=== PATIENT | female | born 1990 | race Caucasian/White ===

== ENCOUNTER 2016-06-04 11:22 | Emergency (ER) | payer SELFPAY ==
[2016-06-04 11:59] VITALS: BP 145/84
--- NOTE | 2016-07-07 17:17 | UC ---
Grecia Alford Anna, scribed for Jasmine Regan MD on 06/04/16 at 1224 . General HPI - HPI Summary HPI Summary: Patient is a 26 y/o female coming to [facility] [place] with acute on chronic vomiting and diarrhea that began yesterday. Two nights ago, she had a dinner of chicken, refried beans, and a tortilla, after which she experienced abd pain. When she woke up yesterday at 0400 she experienced diarrhea and vomiting and had a fever of 102. The fever has since resolved, and the diarrhea has somewhat resolved. She has a PHOENIX at bedtime almost every night at baseline. Her most recent headache was two nights ago, not the worst of her life. She has a vaginal discharge at baseline, which she noticed has been increasing in quantity. She has had two yeast infections previously, but not recently. She has been dizzy lately, especially yesterday morning. She has some dizziness at work on occasion, but she attributes this to dehydration and frequent activity at work. She reports urination urgency at baseline. She has not eaten anything today. She also has a slight cough, which she attributed to smoking. Her cough is productive and brings up phlegm regularly. She reports occasional wheezing and is reducing the amount that she smokes. Denies heart problems or recent travel. The symptoms are not alleviated by the use of probiotics and natural supplements. She reports having intermittent vomiting for a few months. Six months ago she had similar symptoms, including chills and cold sweats, but it was resolved after one night of sleep. - History of Current Complaint Chief Complaint: UCAbdominalPain Stated Complaint: CONGEST,STOMACH COMP, RETN TO [facility] NOTE NEEDED Hx Obtained From: Patient Onset Severity: Moderate Current Severity: Moderate - Allergy/Home Medications Allergies/Adverse Reactions: Allergies Allergy/AdvReac Type Severity Reaction Status Date / Time Amoxicillin Allergy Mild Rash Verified 07/24/15 16:58 PMH/Surg Hx/FS Hx/Imm Hx Endocrine History Of: Denies: Diabetes, Thyroid Disease Cardiovascular History Of: Denies: Cardiac Disorders, Hypertension Respiratory History Of: Denies: COPD, Asthma GI/ History Of: Denies: Ulcer - Surgical History Surgical History: None Surgery Procedure, Year, and Place: none - Family History Known Family History: Positive: Other - Hx GERD in mother - Social History Occupation: Employed Full-time Alcohol Use: Rare Substance Use Type: None Smoking Status (MU): Light Every Day Tobacco Smoker Type: Cigarettes Amount Used/How Often: 3-4 per night Have You Smoked in the Last Year: Yes Cessation Counseling: Counseled 3+Min - 10 Min - Immunization History Most Recent Influenza Vaccination: counseled Most Recent Tetanus Shot: 08/19/14 Most Recent Pneumonia Vaccination: none Review of Systems Constitutional: Negative Skin: Negative Eyes: Negative ENT: Negative Respiratory: Cough - See HPI Cardiovascular: Negative Gastrointestinal: Abdominal Pain, Vomiting, Diarrhea Genitourinary: Urgency - baseline, Other - Diarrhea, acute. Discharge, baseline. See HPI. Motor: Negative Neurovascular: Negative Musculoskeletal: Negative Neurological: Headache - baseline, Other - dizziness Psychological: Negative All Other Systems Reviewed And Are Negative: Yes Physical Exam Triage Information Reviewed: Yes Appearance: Well-Nourished Vital Signs: Initial Vital Signs Temp 98.8 F 06/04/16 11:49 Pulse 113 06/04/16 11:49 Resp 18 06/04/16 11:49 BP 145/84 06/04/16 11:49 Pulse Ox 94 06/04/16 11:49 Vital Signs Reviewed: Yes Eye Exam: Normal ENT: Positive: Other: - cerumen impaction au Neck exam: Normal - No adenopathy appreciated Respiratory Exam: Normal Respiratory: Positive: Chest non-tender, No respiratory distress, No accessory muscle use, Wheezing Cardiovascular Exam: Normal Cardiovascular: Positive: RRR, No Murmur, Pulses Normal, Brisk Capillary Refill Abdomen Description: Positive: No Organomegaly, Soft, Other: - abd diffuse, mostly midepig tenderness Bowel Sounds: Positive: Hyperactive Musculoskeletal Exam: Normal Musculoskeletal: Positive: Strength Intact Neurological Exam: Normal - Nonfocal, grossly intact Psychological Exam: Normal - Conversing easily and appropriately Skin Exam: Normal - No visible or reported rashes Course/Dx - Course Course Of Treatment: No new problems in CCC. S/Sx c/w acute gastroenteritis. EAC's flushed by RN. Post exam no problems. Reviewed d/c instructions and need for f/u with pt. Refill for inhaler also written. Questions answered to the best of my ability. - Differential Dx - Multi-Symptom Provider Diagnoses: acute gastrenteritits / diarrhea. Cerumen impaction Discharge - Discharge Plan Condition: Stable Disposition: HOME Prescriptions: Albuterol HFA INHALER* [Ventolin HFA Inhaler*] 1 - 2 puff INH Q4H PRN #1 mdi PRN Reason: Wheezing Ranitidine HCl [Zantac 150 Maximum Streng] 150 mg PO BID PRN #30 tab PRN Reason: Heartburn Patient Education Materials: How to Stop Smoking (ED), Cerumen Impaction (ED), Acute Diarrhea (ED), Abdominal Pain (ED) Forms: *Work Release Referrals: [facility] [place] [facility]ERR[facility] [Outside] Additional Instructions: Please follow up with a primary care provider as soon as you are able. Please seek medical attention for worsening problems in the meantime. Urine culture in the lab. You will be notified if there is a problem requiring treatment. Should you take an antibiotic, please avoid taking it within two hours of the antacid. Stool sample the next time you have a diarrhea bowel movement. The documentation as recorded by the Grecia wolf Anna accurately reflects the service I personally performed and the decisions made by me, Jasmine Regan MD.
== END 2016-06-04 13:41 | disposition home or self-care (01) ==
LOC: UCEAST 11:22
DX: K52.9 Noninfective gastroenteritis and colitis, unspecified (principal); H61.23 Impacted cerumen, bilateral; N89.8 Other specified noninflammatory disorders of vagina; R42 Dizziness and giddiness; R39.15 Urgency of urination; Z32.02 Encounter for pregnancy test, result negative; Z88.1 Allergy status to other antibiotic agents; F17.210 Nicotine dependence, cigarettes, uncomplicated; Z71.6 Tobacco abuse counseling
CPT/HCPCS: 69210; 81002; 81025; 87086; 99212; 99213; G0463

== ENCOUNTER 2016-06-11 08:18 | Emergency (ER) | payer SELFPAY ==
[2016-06-11] MEDS ORDERED: NS 0.9% 1000 ML* 2,000 ML IV ONE (09:07)
[2016-06-11 10:02] LABS: Hematocrit 40 % (35-47); Hemoglobin 13.5 g/dl (12.0-16.0); Mean Corpuscular HGB Conc 34 g/dl (31-36); Mean Corpuscular Hemoglobin 28 pg (27-31); Mean Corpuscular Volume 84 fL (80-97); Mean Platelet Volume 9 um3 (7.4-10.4); Red Blood Count 4.78 10^6/ul (4.0-5.4); Red Cell Distribution Width 13 % (10.5-15); White Blood Count 10.2 10^3/ul (3.5-10.8)
[2016-06-11 10:17] LABS: ALT 29 U/L (7-52); AST 17 U/L (13-39); Albumin 3.9 g/dL (3.2-5.2); Alkaline Phosphatase 63 U/L (34-104); Anion Gap 6 mmol/L (2-11); BUN/Creatinine Ratio 12.5 (8-20); Blood Urea Nitrogen 9 mg/dL (6-24); C Reactive Protein 15.24 mg/L (< 5.00); CO2 Carbon Dioxide 26 mmol/L (22-32); Calcium 9.4 mg/dL (8.6-10.3); Chloride 105 mmol/L (101-111); EGFR Non-African American 97.2 (>60); Globulin 3.1 g/dL (2-4); Glucose 96 mg/dL (70-100); Lipase < 10 U/L (11.0-82.0); Potassium 4.1 mmol/L (3.5-5.0); Sodium 137 mmol/L (133-145)
[2016-06-11 11:17] LABS: Urine Bilirubin Negative (Negative); Urine Glucose Negative (Negative); Urine Nitrite Negative (Negative)
[2016-06-11 11:17] LABS: TSH (Thyroid Stimulating Horm) 1.26 mcIU/mL (0.34-5.60)
[2016-06-11] MEDS ORDERED: Iohexol 300* (CONTRAST) 10 ML SDV IV ONE (11:19)
--- NOTE | 2016-06-11 12:23 | RAD ---
INDICATION: LEFT abdominal pain, diarrhea, vomiting. GI issues for 6 months. Family history of Crohn's disease. COMPARISON: None. TECHNIQUE: Multidetector CT images were obtained from the lung bases to the ischial tuberosities with 143 mL Omnipaque 300 IV and oral contrast. Multiplanar reformation. REPORT: Unremarkable visualized inferior thorax. Decreased density of the liver consistent with fatty infiltration. No focal hepatic lesions or biliary dilatation. No CT abnormality of the gallbladder, pancreas, spleen. No CT abnormality of the upper GI, small bowel, appendix visualized extending lateral to the cecum, or colon. Enteric contrast extends to the rectum. Negative for perienteric inflammatory change. Negative for ascites, free air, or significant hernias. Normal adrenal glands. Unremarkable kidneys with symmetric nephrograms and pyelograms. Unremarkable ureters and urinary bladder as well as the uterus and RIGHT adnexal region. 1.3 cm water density cyst of the LEFT ovary most consistent with a follicular cyst. This is low suspicion based on small size. Negative for lymphadenopathy. Unremarkable dominant retroperitoneal vasculature. Negative for suspicious osseous lesions. IMPRESSION: 1. Fatty infiltration of the liver. 2. No pathologic process of the bowel evident.
--- NOTE | 2016-06-11 13:53 | ED ---
Kirit Alford Alok, scribed for Sammy Vaughn MD on 06/11/16 at 1010 . Abdominal Pain/Female - HPI Summary HPI Summary: 26 y/o female presents to the ED with c/o abd pain and N/V for the last 6 months. Pt states that what began as just vomiting once a day in the morning has worsened with the addition of frequent and intense diarrhea about 1 month ago. Earlier today Pt notes vomiting twice this morning, the second time bright yellow emesis prompting her visit to the ED today. Pt's abd pain is concentrated on the left side and radiates towards her back. These digestion issues and abd pain worsen with food/fluid ingestion and register at a 6 out of 10 currently, though were at an 8 out of 10 this morning. Pt also notes having a subjective fever of 102 F taken at home 1 week ago after eating a regular meal. Pt denies any abd related PSHx. Pt also notes that her menstrual periods have been somewhat irregular recently. Pt denies any vaginal discharge, burning or dysuria. - History of Current Complaint Chief Complaint: EDAbdPain Stated Complaint: VOMITING Time Seen by Provider: 06/11/16 08:52 Hx Obtained From: Patient Hx Last Menstrual Period: May 21 ?: No Onset/Duration: Gradual Onset, Lasting Weeks, Still Present, Worse Since - 1 month ago Timing: Weeks Severity Initially: Moderate Severity Currently: Moderate Pain Intensity: 6 Pain Scale Used: 0-10 Numeric Location: Discrete At: LUQ, Discrete At: LLQ Radiates: Yes Radiates to: Back Character: Cramping Aggravating Factor(s): Food Alleviating Factor(s): Nothing Associated Signs and Symptoms: Positive: Fever, Decreased Appetite, Nausea, Vomiting, Diarrhea. Negative: Urinary Symptoms, Vaginal Discharge Allergies/Adverse Reactions: Allergies Allergy/AdvReac Type Severity Reaction Status Date / Time Amoxicillin Allergy Mild Rash Verified 07/24/15 16:58 PMH/Surg Hx/FS Hx/Imm Hx Endocrine/Hematology History: Denies: Hx Diabetes, Hx Thyroid Disease Cardiovascular History: Denies: Hx Hypertension Respiratory History: Denies: Hx Asthma, Hx Chronic Obstructive Pulmonary Disease (COPD) GI History: Denies: Hx Ulcer - Cancer History Cancer Type, Location and Year: none - Surgical History Surgery Procedure, Year, and Place: none Infectious Disease History: No Infectious Disease History: Denies: Hx Clostridium Difficile, Hx Hepatitis, Hx Human Immunodeficiency Virus (HIV), Hx of Known/Suspected MRSA, Hx Shingles, Hx Tuberculosis, Hx Known/ Suspected VRE, Hx Known/Suspected VRSA, History Other Infectious Disease, Traveled Outside the [place] in Last 30 Days - Family History Family History: Yes Cron's (Grandparents). Yes IBS (Father's side) - Social History Occupation: Employed Full-time Lives: With Family - Domestic partner (male) Alcohol Use: Rare Substance Use Type: Reports: None Smoking Status (MU): Light Every Day Tobacco Smoker Type: Cigarettes Amount Used/How Often: 3-4 per night Have You Smoked in the Last Year: Yes Review of Systems Positive: Fever. Negative: Chills Positive: Abdominal Pain - Left side, Vomiting, Diarrhea, Nausea Negative: burning, dysuria, discharge All Other Systems Reviewed And Are Negative: Yes Physical Exam - Summary Physical Exam Summary: Appearance: Well-appearing, no pain distress Skin: Warm, skin color reflect adequate color and perfusion, dry Head/Face: Normal head/face Eyes: EOMI, PERRL ENT: Normal ENT inspection Neck: Supple, nontender Resp: CTA, breath sounds present Cardio: RRR Abd: Left sided abdominal tenderness Bowel: Present Musculo: Normal, Strength, ROM intact Neuro: Normal, sensory/motor intact AxO x3 Psych: Affect/ mood appropriate Triage Information Reviewed: Yes Vital Signs On Initial Exam: Initial Vitals Temp Pulse Resp BP Pulse Ox 97.5 F 61 20 109/77 97 06/11/16 08:20 06/11/16 08:20 06/11/16 08:20 06/11/16 08:20 06/11/16 08:20 Vital Signs Reviewed: Yes Diagnostics - Vital Signs Vital Signs Temp Pulse Resp BP Pulse Ox 06/11/16 08:20 97.5 F 61 20 109/77 97 - Laboratory Lab Results: Lab Results 06/11/16 06/11/16 06/11/16 Range/Units 09:51 09:51 09:51 WBC 10.2 (3.5-10.8) 10^3/ul RBC 4.78 (4.0-5.4) 10^6/ul Hgb 13.5 (12.0-16.0) g/dl Hct 40 (35-47) % MCV 84 (80-97) fL MCH 28 (27-31) pg MCHC 34 (31-36) g/dl RDW 13 (10.5-15) % Plt Count 273 (150-450) 10^3/ul MPV 9 (7.4-10.4) um3 Neut % (Auto) 68.4 (38-83) % Lymph % (Auto) 25.1 (25-47) % [place] % (Auto) 5.0 (1-9) % Eos % (Auto) 0.8 (0-6) % Baso % (Auto) 0.7 (0-2) % Absolute Neuts (auto) 7.0 (1.5-7.7) 10^3/ul Absolute Lymphs (auto) 2.6 (1.0-4.8) 10^3/ul Absolute Monos (auto) 0.5 (0-0.8) 10^3/ul Absolute Eos (auto) 0.1 (0-0.6) 10^3/ul Absolute Basos (auto) 0.1 (0-0.2) 10^3/ul Absolute Nucleated RBC 0 10^3/ul Nucleated RBC % 0 INR (Anticoag Therapy) (0.89-1.11) APTT (26.0-36.3) seconds Sodium 137 (133-145) mmol/L Potassium 4.1 (3.5-5.0) mmol/L Chloride 105 (101-111) mmol/L Carbon Dioxide 26 (22-32) mmol/L Anion Gap 6 (2-11) mmol/L BUN 9 (6-24) mg/dL Creatinine 0.72 (0.51-0.95) mg/dL Est GFR ( Amer) 125.0 (>60) Est GFR (Non-Af Amer) 97.2 (>60) BUN/Creatinine Ratio 12.5 (8-20) Glucose 96 (70-100) mg/dL Lactic Acid 1.1 (0.5-2.0) mmol/L Calcium 9.4 (8.6-10.3) mg/dL Total Bilirubin 0.40 (0.2-1.0) mg/dL AST 17 (13-39) U/L ALT 29 (7-52) U/L Alkaline Phosphatase 63 (34-104) U/L C-Reactive Protein 15.24 H (< 5.00) mg/L Total Protein 7.0 (6.4-8.9) g/dL Albumin 3.9 (3.2-5.2) g/dL Globulin 3.1 (2-4) g/dL Albumin/Globulin Ratio 1.3 (1-3) Lipase < 10 L (11.0-82.0) U/L TSH 1.26 (0.34-5.60) mcIU/mL Beta HCG, Quant < 0.60 mIU/mL Urine Color Urine Appearance Urine pH (5-9) Ur Specific [place] (1.010-1.030) Urine Protein (Negative) Urine Ketones (Negative) Urine Blood (Negative) Urine Nitrate (Negative) Urine Bilirubin (Negative) Urine Urobilinogen (Negative) Ur Leukocyte Esterase (Negative) Urine Glucose (Negative) Urine Ascorbic Acid (Negative) 06/11/16 06/11/16 Range/Units 10:50 10:55 WBC (3.5-10.8) 10^3/ul RBC (4.0-5.4) 10^6/ul Hgb (12.0-16.0) g/dl Hct (35-47) % MCV (80-97) fL MCH (27-31) pg MCHC (31-36) g/dl RDW (10.5-15) % Plt Count (150-450) 10^3/ul MPV (7.4-10.4) um3 Neut % (Auto) (38-83) % Lymph % (Auto) (25-47) % Radford % (Auto) (1-9) % Eos % (Auto) (0-6) % Baso % (Auto) (0-2) % Absolute Neuts (auto) (1.5-7.7) 10^3/ul Absolute Lymphs (auto) (1.0-4.8) 10^3/ul Absolute Monos (auto) (0-0.8) 10^3/ul Absolute Eos (auto) (0-0.6) 10^3/ul Absolute Basos (auto) (0-0.2) 10^3/ul Absolute Nucleated RBC 10^3/ul Nucleated RBC % INR (Anticoag Therapy) 1.02 (0.89-1.11) APTT 31.7 (26.0-36.3) seconds Sodium (133-145) mmol/L Potassium (3.5-5.0) mmol/L Chloride (101-111) mmol/L Carbon Dioxide (22-32) mmol/L Anion Gap (2-11) mmol/L BUN (6-24) mg/dL Creatinine (0.51-0.95) mg/dL Est GFR ( Amer) (>60) Est GFR (Non-Af Amer) (>60) BUN/Creatinine Ratio (8-20) Glucose (70-100) mg/dL Lactic Acid (0.5-2.0) mmol/L Calcium (8.6-10.3) mg/dL Total Bilirubin (0.2-1.0) mg/dL AST (13-39) U/L ALT (7-52) U/L Alkaline Phosphatase (34-104) U/L C-Reactive Protein (< 5.00) mg/L Total Protein (6.4-8.9) g/dL Albumin (3.2-5.2) g/dL Globulin (2-4) g/dL Albumin/Globulin Ratio (1-3) Lipase (11.0-82.0) U/L TSH (0.34-5.60) mcIU/mL Beta HCG, Quant mIU/mL Urine Color Yellow Urine Appearance Cloudy Urine pH 6.0 (5-9) Ur Specific [place] 1.025 (1.010-1.030) Urine Protein Negative (Negative) Urine Ketones Negative (Negative) Urine Blood Negative (Negative) Urine Nitrate Negative (Negative) Urine Bilirubin Negative (Negative) Urine Urobilinogen Negative (Negative) Ur Leukocyte Esterase Negative (Negative) Urine Glucose Negative (Negative) Urine Ascorbic Acid * H (Negative) Result Diagrams: 06/11/16 09:51 06/11/16 09:51 Lab Statement: Any lab studies that have been ordered have been reviewed, and results considered in the medical decision making process. - CT Abd/Pel CT CT Interpretation: Positive (See Comments) - IMPRESSION: 1. Fatty infiltration of the liver. 2. No pathologic process of the bowel evident. CT Interpretation Completed By: Radiologist Re-Evaluation - Re-Evaluation First Eval Re-Evaluation Time: 13:25 Second Eval Re-Evaluation Time: 13:45 Abdominal Pain Fem Course/Dx - Course Course Of Treatment: WELL IN ED. DISCUSSED RESULTS WITH PATIENT. F/U WITH PMD; RETURN IF WORSE. DISCHARGE HOME STABLE. - Diagnoses Provider Diagnoses: Abdominal pain, Vomiting and diarrhea Discharge - Discharge Plan Condition: Stable Disposition: HOME Prescriptions: Prochlorperazine TAB* [Compazine Tab*] 10 mg PO Q6H PRN #20 tab PRN Reason: Nausea Patient Education Materials: Abdominal Pain (ED), Acute Nausea and Vomiting (ED ) Forms: *Work Release Referrals: No Primary Care Phys,NOPCP [Primary Care Provider] - [facility] [place]Outside] Additional Instructions: FOLLOW UP WITH YOUR DOCTOR. USE A BULKING AGENT SUCH METAMUCIL OR CITRUCEL DIRECTED. RETURN TO THE EMERGENCY DEPARTMENT FOR ANY WORSENING OF YOUR CONDITION; PAIN, FEVER, YOU FEEL ILL, BLOOD IN YOUR STOOL OR QUESTIONS OR CONCERNS. The documentation as recorded by the Kirit wolf Alok accurately reflects the service I personally performed and the decisions made by me, Sammy Vaughn MD.
[2016-06-11 14:10] VITALS: BP 119/54
== END 2016-06-11 14:11 | disposition home or self-care (01) ==
LOC: ED 08:18
DX: R10.84 Generalized abdominal pain (principal); R11.2 Nausea with vomiting, unspecified; R19.7 Diarrhea, unspecified; F17.210 Nicotine dependence, cigarettes, uncomplicated
CPT/HCPCS: 36415; 74177; 80053; 81003; 82272; 83605; 83630; 83690; 84443; 84702; 85025; 85610; 85730; 86140; 87045; 87046; 87077; 87328; 87329; 87493; 87899; 99283; Q9967

== ENCOUNTER 2018-09-01 09:25 | Emergency (ER) | payer OTHER ==
[2018-09-01 10:17] VITALS: BP 124/86
--- NOTE | 2018-09-01 10:57 | UC ---
Throat Pain/Nasal Carl HPI - HPI Summary HPI Summary: 28 y/o female presents to the urgent care c/o sore throat, sinus pressure w/ a lot of green nasal discharge , body aches, b/L neck pain w/ swollen glands since Friday08/29/2018. Pt reports after being in a libertarian, she developed fatigue, body aches and sore throat and severe nasal congestion. About 2 nights ago, she felt the need to do a BM and while in the bathroom, she experience chills and dizziness while doing the BM. Her sinus pain and congestion has worsen PT states had an instance of shaking, near fainting, need to defecate, 2 nights ago. Pt states extremely tired, neck stiffness, congestion that started yesterday. Pt states now feels nauseous, swollen neck glands. - History of Current Complaint Chief Complaint: UCGeneralIllness Stated Complaint: SINUS ISSUE SORE THROAT FEVER Time Seen by Provider: 09/01/18 10:54 Hx Obtained From: Patient Hx Last Menstrual Period: 08/05/18 Onset/Duration: Gradual Onset, Lasting Days - 4 days, Still Present, Worse Since - yesterday Severity: Severe Pain Intensity: 9 - sore throat Pain Scale Used: 0-10 Numeric Cough: None Associated Signs & Symptoms: Positive: Dysphagia, Sinus Discomfort - sinus pain , Nasal Discharge - green. Negative: Wheezing, Fever, Vomiting, Rash - Epiglottits Risk Factors Epiglottis Risk Factors: Negative - Allergies/Home Medications Allergies/Adverse Reactions: Allergies Allergy/AdvReac Type Severity Reaction Status Date / Time amoxicillin Allergy Rash Verified 09/01/18 10:09 PMH/Surg Hx/FS Hx/Imm Hx Previously Healthy: Yes - Pt denies PMHX - Surgical History Surgical History: None Surgery Procedure, Year, and Place: none - Family History Known Family History: Positive: Diabetes, Respiratory Disease - COPD, Other - NONCINTRIBUTORY Family History: Yes Cron's (Grandparents). Yes IBS (Father's side) - Social History Occupation: Employed Full-time Lives: With Family Alcohol Use: None Substance Use Type: None Smoking Status (MU): Former Smoker Type: Cigarettes Amount Used/How Often: 3-4 per night Have You Smoked in the Last Year: Yes When Did the Patient Quit Smoking/Using Tobacco: early - Immunization History Most Recent Influenza Vaccination: counseled Most Recent Tetanus Shot: 5/15/15 Most Recent Pneumonia Vaccination: none Review of Systems All Other Systems Reviewed And Are Negative: Yes Constitutional: Positive: Fatigue, Other - bodya ches Skin: Positive: Negative Eyes: Positive: Negative ENT: Positive: Sore Throat, Ear Ache - B/L ear pressure, Nasal Discharge - green , Sinus Congestion, Sinus Pain/Tenderness, Other - a lot of green PND Respiratory: Positive: Negative Cardiovascular: Positive: Negative Gastrointestinal: Positive: Negative Genitourinary: Positive: Negative Motor: Positive: Negative Neurovascular: Positive: Negative Musculoskeletal: Positive: Other: - B/L neck tenderness Neurological: Positive: Negative Psychological: Positive: Negative Is Patient Immunocompromised?: No Physical Exam - Summary Physical Exam Summary: GENERAL: Patient is a well developed and nourished obese female who is sitting comfortable in the examining table. Patient is not in any acute respiratory distress. HEAD AND FACE: No signs of trauma. No ecchymosis, hematomas or skull depressions. positive fontal and maxillary sinus tenderness on percussion EYES: PERRLA, EOMI x 2, No injected conjunctiva, no nystagmus. No photophobia. EARS: Hearing grossly intact. b/l ear canal impacted w/ cerumen unable to visualize TM's MOUTH: Positive pharynx with erythema, exudates, mild palatal petechiae. B/L tonsillar enlargement with mild exudate. Uvula in midline. severe green PND NECK: Supple, trachea is midline, Positive anterior cervical lymphadenopathy, no JVD, no carotid bruit, no c-spine tenderness, neck with full ROM. No meningeal signs, no Kernig's or brudzinskis signs. CHEST: Symmetric, no tenderness at palpation LUNGS: Clear to auscultation bilaterally. No wheezing or crackles. CVS: Regular rate and rhythm, S1 and S2 present, no murmurs or gallops appreciated. ABDOMEN: Soft, non-tender. No signs of distention. No rebound no guarding, and no masses palpated. Bowel sounds are normal. EXTREMITIES: FROM in all major joints, no edema, no cyanosis or clubbing. NEURO: Alert and oriented x 3. No acute neurological deficits. Speech is normal and follows commands. SKIN: Dry and warm Triage Information Reviewed: Yes Vital Signs: Initial Vital Signs Temp 98.3 F 09/01/18 10:10 Pulse 86 09/01/18 10:10 Resp 18 09/01/18 10:10 BP 124/86 09/01/18 10:10 Pulse Ox 98 09/01/18 10:10 Throat Pain/Nasal Course/Dx - Differential Dx/Diagnosis Differential Diagnosis/HQI/PQRI: Influenza, Laryngitis, Mononucleosis, Pharyngitis, Sinusitis, Tonsillitis, URI Provider Diagnosis: Acute bacterial sinusitis, Pharyngitis, Impacted cerumen of both ears Discharge - Sign-Out/Discharge Documenting (check all that apply): Patient Departure - D/c home All imaging exams completed and their final reports reviewed: No Studies - Discharge Plan Condition: Stable Disposition: HOME Prescriptions: Carbamide Peroxide 6.5% OTIC* [DEBROX 6.5% Otic*] 5 drop BOTH EARS BID #1 bottle DOXYcycline CAP(*) [DOXYcycline 100MG CAP(*)] 100 mg PO BID #20 cap Fluticasone NASAL SPRAY 50MCG* [Flonase NASAL SPRAY 50MCG*] 2 spray BOTH NARES DAILY #1 btl Ibuprofen TAB* [Motrin TAB* 800 MG] 800 mg PO Q6H PRN #30 tab PRN Reason: Sore Throat Patient Education Materials: Pharyngitis (ED), Sinusitis (ED) Forms: *Work Release Referrals: [facility] [place]Outside] - 3 Days Additional Instructions: 1- Please take the full course of the antibiotic to avoid resistance. Take yogurts w/ probiotics or Culturelle to protect your GI System 2-Please take ibuprofen PO q6-8hrs prn as instructed after meals to alleviate pain and swelling. Increase fluid intake, eat well, rest and avoid strenuous exercise. 3- Use Flonase nasal spray and saline nasal drops as directed to clear sinuses. 4- Apply Debrox otitc drops as directed to soften cerumen in your eara and alleviate symptoms. 5- Monospot and CBc sent to lab, you will be notified of any abnormality 6-If symptoms worsen and you develop fever or severe sore throat and neck pain w/ PHOENIX despite taking antibiotics please go immediately to the ER for further management. Otherwise f/u with PCP if not improvement for further evaluation and treatment. - Billing Disposition and Condition Condition: STABLE Disposition: Home
[2018-09-01 11:26] LABS: Influenza A Molecular NEGATIVE (Negative); Influenza B Molecular NEGATIVE (Negative)
[2018-09-01] MEDS: Ibuprofen TAB* 400 MG PO ONE (11:38)
[2018-09-01 16:31] LABS: ABS Lymphocytes 2.1 10^3/ul (1.0-4.8); ABS Neutrophils 16.1 10^3/ul (1.5-7.7); Eosinophil % 0.1 %; Hematocrit 42 % (35-47); Hemoglobin 13.9 g/dL (12.0-16.0); Lymphocyte % 10.7 %; Mean Corpuscular HGB Conc 33 g/dL (31-36); Mean Corpuscular Hemoglobin 29 pg (27-31); Mean Corpuscular Volume 88 fL (80-97); Mean Platelet Volume 8.9 fL (7.4-10.4); Platelet Count 290 10^3/uL (150-450); Red Blood Count 4.79 10^6 /uL (3.70-4.87); Red Cell Distribution Width 13 % (10.5-15); White Blood Count 19.2 10^3/uL (3.5-10.8)
[2018-09-03 15:13] LABS: EBV Capsid Ag IgG Ab Positive (Negative); EBV Capsid Ag IgM Ab Negative (Negative); Epstein-Barr Nuclear Antigen Negative (Negative)
--- NOTE | 2018-09-04 12:01 | UC ---
Course/Dx - Course Course Of Treatment: Patients Gaby-Simpson virus IgG is positive. Therefore believe that the patient had infectious mononucleosis. The patient was ready taking doxycycline for pharyngitis and sinusitis. We will call the patient later note that the infectious mononucleosis test was positive. Therefore he will be advised not to do any type of contact sports to prevent any abdominal trauma - Diagnoses Provider Diagnoses: Acute bacterial sinusitis, Pharyngitis, Impacted cerumen of both ears, Infectious mononucleosis Discharge - Sign-Out/Discharge Documenting (check all that apply): Patient Departure All imaging exams completed and their final reports reviewed: No Studies - Discharge Plan Condition: Stable Disposition: HOME Prescriptions: Carbamide Peroxide 6.5% OTIC* [DEBROX 6.5% Otic*] 5 drop BOTH EARS BID #1 bottle DOXYcycline CAP(*) [DOXYcycline 100MG CAP(*)] 100 mg PO BID #20 cap Fluticasone NASAL SPRAY 50MCG* [Flonase NASAL SPRAY 50MCG*] 2 spray BOTH NARES DAILY #1 btl Ibuprofen TAB* [Motrin TAB* 800 MG] 800 mg PO Q6H PRN #30 tab PRN Reason: Sore Throat Patient Education Materials: Pharyngitis (ED), Sinusitis (ED) Forms: *Work Release Referrals: [facility] [place] [facility] [Outside] - 3 Days Additional Instructions: 1- Please take the full course of the antibiotic to avoid resistance. Take yogurts w/ probiotics or Culturelle to protect your GI System 2-Please take ibuprofen PO q6-8hrs prn as instructed after meals to alleviate pain and swelling. Increase fluid intake, eat well, rest and avoid strenuous exercise. 3- Use Flonase nasal spray and saline nasal drops as directed to clear sinuses. 4- Apply Debrox otitc drops as directed to soften cerumen in your eara and alleviate symptoms. 5- Monospot and CBc sent to lab, you will be notified of any abnormality 6-If symptoms worsen and you develop fever or severe sore throat and neck pain w/ [place] despite taking antibiotics please go immediately to the ER for further management. Otherwise f/u with PCP if not improvement for further evaluation and treatment. - Billing Disposition and Condition Condition: STABLE Disposition: Home
== END 2018-09-01 12:09 | disposition home or self-care (01) ==
LOC: UCEAST 09:25
DX: J01.90 Acute sinusitis, unspecified (principal); J02.9 Acute pharyngitis, unspecified; H61.23 Impacted cerumen, bilateral; B27.00 Gammaherpesviral mononucleosis without complication; B96.89 Other specified bacterial agents as the cause of diseases classified elsewhere; Z88.0 Allergy status to penicillin; Z16.29 Resistance to other single specified antibiotic; Z87.891 Personal history of nicotine dependence
CPT/HCPCS: 36415; 85025; 86308; 86664; 86665; 87651; 99211; A9270-GY; G0463